=== PATIENT | male | born 1940 | race Caucasian/White ===

== ENCOUNTER 2022-02-08 09:09 | Emergency (ER) | payer OTHER ==
--- OUTSIDE RECORDS SUMMARY | 2022-02-08 09:13 | XMS REPORT | Continuity of Care Document ---
:1940 Author Organization [facility] t Address [address] [place] [address] Care Team Providers Name Role Phone Abhijeet ISABEL, Becky Primary Care Physician David Hilliard Attending Clinician Unavailable Nurse, Adc Pob Immunization Attending Clinician Unavailable Jeferson Bravo DO Attending Clinician JEFERSON BRAVO Attending Clinician Unavailable Ricardo ISABEL, Benito Attending Clinician Lab, Adc Fam Pob I Attending Clinician Unavailable Shanti Chacon Attending Clinician Payers Payer Name Policy Type Policy Number Effective Date Expiration Date S ource Problems Condition Condition Condition Status Onset Resolution Last Treating Co mments Source Name Details Category Date Date Treatment Clinician Date Osteoarthr Osteoarthr Disease Active 2014-06 U nivers itis of itis of 2-18 ity of both knees both knees 00:00: [place] [address] [place] [address] Kidney Kidney Disease Active 2014-06 Univers stones stones 2-18 ity of 00:00: [address] HTN HTN Disease Active 2014-06 Univers (hypertens (hypertens 2-18 it y of ion) ion) 00:00: [address] Neuropathy Neuropathy Disease Active 2014-06 U nivers 2-18 ity of 00:00: [place] 00 Medical Branch Hyperlipid Hyperlipid Disease Active 2014-06 U nivers emia emia 18 ity of 00:00: [place] 00 Medical Branch Allergies, Adverse Reactions, Alerts Allergy Allergy Status Severity Reaction(s) Onset Inactive Treating Comm ents Source Name Type Date Date Clinician Stephanie Propensi Active Itching 2014-06 Univers ty to 218 ity of adverse 00:00: [place] reaction 00 Medical s Branch NIACIN DRUG Active ITCHING 2014-06 Univers INGREDI 18 ity of 00:00: [place] 00 Medical Branch Niaspan Adverse Active itching Common Reaction [facility] Social History Social Habit Start Date Stop Date Quantity Comments Source Alcohol intake 2016-11-07 2016-11-07 0 /d [facility] 00:00:00 00:00:00 Medical Branch Tobacco Comment 2015-07-15 2015-07-15 quit age 37 [facility] 00:00:00 00:00:00 Medical Branch Sex Ass[birth year] [facility] 00:00:00 00:00:00 Medical Branch Smoking Status Start Date Stop Date Source Former smoker 2015-07-15 00:00:00 2015-07-15 00:00:00 [facility] Medical Branch Medications Ordered Filled Start Stop Current Ordering Indication Dosage Frequency Signature Comments Components Source Medication Medication Date Date Medication? Clinician (SIG) Name Name amLODIPine Yes [id number] 5mg Take 1 U nivers 5 mg tablet 2-12 tablet by ity of 00:00: mouth [place] 00 daily. Medical Branch amLODIPine Yes [id number] 5mg Take 1 U nivers 5 mg tablet 2-12 tablet by ity of 00:00: mouth [place] 00 daily. Medical Branch amLODIPine Yes [id number] 5mg Take 1 U nivers 5 mg tablet 2-26 tablet by ity of 00:00: mouth [place] 00 daily. Medical Branch amLODIPine 2020- No [id number] 5mg Take 1 Univers 5 mg tablet 2-26 02-12 tablet by it y of 00:00: 00:00 mouth [place] 00 :00 daily. Medical Branch ProAir HFA ProAir HFA Yes David 2 puffs as Common 1-21 Hilliard needed Spirit 00:00: - [facility] OMEGA-3 2017- Yes 600[iU] Take 600 Uni vers FATTY 6-05 Int'l ity of ACIDS/FISH 14:32: Units by Gerald as OIL (OMEGA 13 mouth 2 Medica l 3 FISH OIL (two) Branch ORAL) times daily. GLUCOSAM Yes 1500mg Take 1,500 U nivers SUL 6-05 mg by ity of NA/CHONDR 14:32: mouth [place] MARROQUIN A NA 13 daily. Medical (GLUCOSAMIN Branch E & CHONDROIT SUL.NA ORAL) MAGNESIUM 2017 Yes 27mg Take 27 mg Un alex AMINO ACID 6-05 by mouth 3 ity of CHELATE 14:32: (three) [place] (MAGNESIUM 13 times Medical GLUCONATE daily. Branch 27 MG [facility] [place] MG) tablet Magnesium Yes 500mg Take 500 Uni vers Oxide 500 6-05 mg by ity of mg Cap 14:32: mouth [place] 13 daily. Medical Branch aspirin 81 2017 Yes 81mg Take 81 mg U nivers mg EC 6-05 by mouth ity of tablet 14:32: daily. [place] [address] Medical Branch loratadine Yes 10mg Take 10 mg U nivers (CLARITIN) 6-05 by mouth ity o f 10 mg 14:32: daily. [address] Branch Silodosin Yes 8mg Take 8 mg Uni vers (RAPAFLO) 8 6-05 by mouth ity of mg capsule 14:32: daily. [place] [address] Medical Branch POTASSIUM 2017 Yes 20mg Take 20 mg Un alex CITRATE 6-05 by mouth 3 ity of ORAL 14:32: (three) [place] 13 times Medical daily. Branch Coenzyme 20170 Yes 400mg Take 400 Univ ers Q10 (CO 6-05 mg by ity of Q-10) 400 14:32: mouth [place] mg Cap 13 daily. Medical Branch OMEGA-3 2017 Yes 600[iU] Take 600 Uni vers FATTY 6-05 Int'l ity of ACIDS/FISH 14:32: Units by Gerald as OIL (OMEGA 13 mouth 2 Medica l 3 FISH OIL (two) Branch ORAL) times daily. GLUCOSAM 2017 Yes 1500mg Take 1,500 U nivers SUL 6-05 mg by ity of NA/CHONDR 14:32: mouth [place] MARROQUIN A NA 13 daily. Medical (GLUCOSAMIN Branch E & CHONDROIT SUL.NA ORAL) MAGNESIUM 2017 Yes 27mg Take 27 mg Un alex AMINO ACID 6-05 by mouth 3 ity of CHELATE 14:32: (three) [place] (MAGNESIUM 13 times Medical GLUCONATE daily. Branch 27 MG [facility] [place] MG) tablet Magnesium 2017 Yes 500mg Take 500 Uni vers Oxide 500 6-05 mg by ity of mg Cap 14:32: mouth [place] 13 daily. Medical Branch aspirin 81 20170 Yes 81mg Take 81 mg U nivers mg EC 6-05 by mouth ity of tablet 14:32: daily. [place] [address] Medical Branch loratadine Yes 10mg Take 10 mg U nivers (CLARITIN) 6-05 by mouth ity o f 10 mg 14:32: daily. [place] [address] Medical Branch Silodosin Yes 8mg Take 8 mg Uni vers (RAPAFLO) 8 6-05 by mouth ity of mg capsule 14:32: daily. [place] [address] Medical Branch POTASSIUM Yes 20mg Take 20 mg Un alex CITRATE 6-05 by mouth 3 ity of ORAL 14:32: (three) [place] 13 times Medical daily. Branch Coenzyme 2017 Yes 400mg Take 400 Univ ers Q10 (CO 6-05 mg by ity of Q-10) 400 14:32: mouth [place] mg Cap 13 daily. Medical Branch aspirin 81 0 Yes 81mg Take 81 mg U nivers mg EC 6-05 by mouth ity of tablet 09:32: daily. [address] Branch loratadine 2017 Yes 10mg Take 10 mg U nivers (CLARITIN) 6-05 by mouth ity o f 10 mg 09:32: daily. [place] tablet Medical Branch Silodosin 2017 Yes 8mg Take 8 mg Uni vers (RAPAFLO) 8 6-05 by mouth ity of mg capsule 09:32: daily. [place] [address] Medical Branch POTASSIUM 2017- Yes 20mg Take 20 mg Un alex CITRATE 6-05 by mouth 3 ity of ORAL 09:32: (three) [place] 13 times Medical daily. Branch Coenzyme 20170 Yes 400mg Take 400 Univ ers Q10 (CO 6-05 mg by ity of Q-10) 400 09:32: mouth [place] mg Cap 13 daily. Medical Branch OMEGA-3 2017 Yes 600[iU] Take 600 Uni vers FATTY 6-05 Int'l ity of ACIDS/FISH 09:32: Units by Gerald as OIL (OMEGA 13 mouth 2 Medica l 3 FISH OIL (two) Branch ORAL) times daily. GLUCOSAM Yes 1500mg Take 1,500 U nivers SUL 6-05 mg by ity of NA/CHONDR 09:32: mouth [place] MARROQUIN A NA 13 daily. Medical (GLUCOSAMIN Branch E & CHONDROIT SUL.NA ORAL) MAGNESIUM Yes 27mg Take 27 mg Un alex AMINO ACID 6-05 by mouth 3 ity of CHELATE 09:32: (three) [place] (MAGNESIUM 13 times Medical GLUCONATE daily. Branch 27 MG [facility] [place] MG) tablet Magnesium Yes 500mg Take 500 Uni vers Oxide 500 6-05 mg by ity of mg Cap 09:32: mouth [place] 13 daily. Medical Branch ramipril Yes 10mg Take 1 Univers (ALTACE) 10 8-05 capsule by it y of mg capsule 00:00: mouth [place] 00 daily. Medical Branch ramipril Yes 10mg Take 1 Univers (ALTACE) 10 8-05 capsule by it y of mg capsule 00:00: mouth [place] 00 daily. Medical Branch ramipril Yes 10mg Take 1 Univers (ALTACE) 10 8-05 capsule by it y of mg capsule 00:00: mouth [place] 00 daily. Medical Branch fenofibrate Yes 145mg Take 1 Tab Univers (TRICOR) 2-05 by mouth ity of 145 mg 00:00: daily. [place] tablet 00 Medical Branch FLUoxetine Yes 20mg Take 1 Cap U nivers (PROZAC) 20 2-05 by mouth ity of mg capsule 00:00: daily. [place] 00 Medical Branch gabapentin Yes 600mg Take 1 Tab Univers (NEURONTIN) 2-05 by mouth 2 it y of 600 mg 00:00: (two) [place] tablet 00 times Medical daily. Branch fenofibrate Yes 145mg Take 1 Tab Univers (TRICOR) 2-05 by mouth ity of 145 mg 00:00: daily. [place] tablet 00 Medical Branch FLUoxetine Yes 20mg Take 1 Cap U nivers (PROZAC) 20 2-05 by mouth ity of mg capsule 00:00: daily. [place] 00 Medical Branch gabapentin Yes 600mg Take 1 Tab Univers (NEURONTIN) 2-05 by mouth 2 it y of 600 mg 00:00: (two) [place] tablet 00 times Medical daily. Branch fenofibrate Yes 145mg Take 1 Tab Univers (TRICOR) 2-05 by mouth ity of 145 mg 00:00: daily. [place] tablet 00 Medical Branch FLUoxetine Yes 20mg Take 1 Cap U nivers (PROZAC) 20 2-05 by mouth ity of mg capsule 00:00: daily. [place] 00 Medical Branch gabapentin Yes 600mg Take 1 Tab Univers (NEURONTIN) 2-05 by mouth 2 it y of 600 mg 00:00: (two) [place] tablet 00 times Medical daily. Branch Prozac Prozac Yes David 1 capsule Comm on Hilliard in the [facility] morning [facility] Celebrex Celebrex Yes David TAKE ONE C ommon Hilliard CAPSULE BY [facility] MOUTH - [facility] EVERY DAY St WITH FOOD [facility] FOR [facility] PAIN CoQ-10 CoQ-10 Yes David 1 capsule Comm on Hilliard with a [facility] meal [facility] Sumas 3 Sumas 3 Yes David not Common Hilliard defined [facility] Tamsulosin Tamsulosin Yes David 1 capsule Common HCl HCl Hilliard [facility] Norvasc Norvasc Yes David 1 tablet Com mon Hilliard [facility] Aspirin Aspirin Yes David 1 tablet Com mon Adult Low Adult Low Hilliard Spir it Dose Dose - [facility] Ramipril Ramipril Yes David 1 capsule Common Hilliard [facility] Potassium Potassium Yes David 6tablet Common Citrate ER Citrate ER Hilliard with meals [facility] Tricor Tricor Yes David 1 tablet Commo n Hilliard with food [facility] Ramipril Ramipril Yes David 1 capsule Common Hilliard [facility] Magnesium Magnesium Yes David 1 tablet Common Hilliard with a Spirit meal [facility] Neurontin Neurontin Yes David 1 tablet Common Hilliard [facility] Xalatan Xalatan Yes David 1 drop Commo n Hilliard into [facility] affected - [facility] eye in the [facility] Silodosin Silodosin Yes Daivd 1 capsule Common Hilliard with a Spirit meal [facility] Brimonidine Brimonidine Yes David 1 drop to Common Tartrate Tartrate Hilliard both eyes S pirit [facility] Neurontin Neurontin Yes David 1 tablet Common [facility]ard Spirit [facility] Albuterol Albuterol Yes David 2 PUFFS Common Sulfate HFA Sulfate HFA [facility] NEEDED Spirit EVERY 6 - CHI HRS PRN COUGH, [facility] WHEEZING Medical OR [place] SHORTNESS OF BREATH INHALATION 30 DAYS Fenofibrate Fenofibrate Yes David TAKE 1 Common Hilliard TABLET BY Spirit MOUTH - [facility]I EVERY DAY St WITH FOOD [facility] Immunizations Ordered Filled Immunization Date Status Comments Sourc e Immunization Name Name SARS-COV-2 COVID-19 2021-07-16 Completed Unive rsity of LACHELLE/J&J VACCINE 00:00:00 [facility] [place] [facility] Branch Procedures Procedure Date / Time Performed Performing Clinician Keely marsh SARS-COV-2 COVID-19 2021-07-16 20:36:36 Doctor Unassigned, No Un iversity of [place] VACCINE,0.5ML,IM Name Medical Branch (LACHELLE/J&J) Encounters Start End Encounter Admission Attending Care Care Encounter Source Date/Time Date/Time Type Type Clinicians Facility Department ID 2021-06-30 Outpatient Hilliard, [facility] Common 13:05:20 David [id number] [facility] 2021-06-30 Outpatient [facility], [facility] Common 13:00:18 David [id number] [facility] 2021-06-30 Outpatient Hilliard, [facility] Common 11:20:34 David [id number] [facility] 2021-06-30 Outpatient Hilliard, [facility] Common 11:20:15 David [id number] [facility] 2021-06-30 Outpatient Hilliard, [facility] Common 11:16:53 David [id number] [facility] 2021-06-30 Outpatient Hilliard, [facility] [id number] Common 11:02:16 [facility] [id number] [facility] 2021-11-12 2021-11-12 ambulatory STLMLC ST[facility]C [id number] Common 00:00:00 00:00:00 [facility] 2021-11-02 2021-11-02 ambulatory STLMLC STLMLC [id number] Common 00:00:00 00:00:00 [facility] 2021-08-16 2021-08-16 ambulatory STLMLC STLMLC [id number] Common 00:00:00 00:00:00 [facility] 2021-07-16 2021-07-16 Imm/Inj Nurse, Adc Pob Immunization [facility] [id number] Univers 14:30:00 14:30:00 Visit Jeferson Bravo [id number] alex [facility] [id number] Jamaal MAI [id number] [address] 2021-07-16 2021-07-16 Outpatient R [facility] [id number] Univers 14:30:00 14:24:[address] [facility] 2021-07-13 2021-07-13 ambulatory STLMLC STLMLC [id number] Common 00:00:00 00:00:00 [facility] 2021-07-09 2021-07-09 ambulatory STLMLC STLMLC [id number] Common 00:00:00 00:00:00 [facility] 2021-04-22 2021-04-22 ambulatory STLMLC STLMLC [id number] Common 00:00:00 00:00:00 [facility] 2021-01-22 2021-01-22 Outpatient STLMLC STLMLC [id number] Common 00:00:00 00:00:00 [facility] 2021-01-22 2021-01-22 Outpatient STLMLC STLMLC [id number] Common 00:00:00 00:00:00 [facility] 2020-11-12 2020-11-12 Outpatient STLMLC STLMLC [id number] Common 00:00:00 00:00:00 [facility] 2020-10-28 2020-10-28 Outpatient STLMLC STLMLC [id number] Common 00:00:00 00:00:00 [facility] 2020-10-22 2020-10-22 Outpatient STLMLC STLMLC [id number] Common 00:00:00 00:00:00 [facility] 2020-09-18 2020-09-18 Outpatient STLMLC STLMLC [id number] Common 00:00:00 00:00:00 [facility] 2020-09-16 2020-09-16 Outpatient STLMLC STLMLC [id number] Common 00:00:00 00:00:00 [facility] 2020-09-14 2020-09-14 Outpatient STLMLC STLMLC [id number] Common 00:00:00 00:00:00 [facility] 2020-09-10 2020-09-10 Outpatient STLMLC STLMLC [id number] Common 00:00:00 00:00:00 [facility] 2020-09-10 2020-09-10 Outpatient STLMLC STLMLC [id number] Common 00:00:00 00:00:00 [facility] 2020-07-17 2020-07-17 [facility] [id number] Univers 00:00:00 00:00:00 [facility] [id number] [facility] [id number] Jamaal Mai [id number] Ak dical [address] 2020-01-14 2020-01-14 Outpatient R [facility] [id number] Univers 16:00:00 16:00:[id number] [facility] 2020-01-14 2020-01-14 Outpatient R [facility] [id number] Univers 16:00:00 16:00:00 [facility] 2020-01-14 2020-01-14 Laboratory Lab, Adc Fam Pob I [facility] [id number] [facility] [place] 15:04:26 15:24:26 Only Shanti Lund [id number] ity junaid Lucia [id number] Gerald as Aj [id number] Ak dical nal [address] 2019-10-08 2019-10-08 [facility] [id number] Common 11:30:00 11:30:[address] [facility] 2019-08-20 2019-08-20 Outpatient [facility] [id number] Common 12:51:00 12:51:[address] [facility] 2019-06-26 2019-06-26 Outpatient [facility] [id number] Common 08:38:00 08:38:[address] [facility] 2019-06-25 2019-06-25 Outpatient [facility] [id number] Common 16:45:00 16:45:[address] [facility] 2019-05-22 2019-05-22 Outpatient [facility] [id number] Common 10:30:00 10:30:[address] [facility] 2019-05-10 2019-05-10 Outpatient [facility] [id number] Common 15:35:00 15:35:[address] [facility] 2019-03-04 2019-03-04 Outpatient [facility] [id number] Common 15:15:00 15:15:[address] Family [facility] 2018-12-15 2018-12-15 Outpatient [facility] [id number] Common 10:10:00 10:10:[address] [facility] 2018-11-21 2018-11-21 Outpatient [facility] [id number] Common 11:45:00 11:45:[address] [facility] 2018-07-09 2018-07-09 Outpatient [facility] [id number] Common 13:30:00 13:30:[address] [facility] 2018-06-08 2018-06-08 Outpatient [facility] [id number] Common 15:54:00 15:54:[address] [facility] 2018-01-03 2018-01-03 Outpatient [facility] [id number] Common 13:30:00 13:30:[address] [facility] Results This patient has no known results.
--- NOTE | 2022-02-08 10:37 | ER ---
Nurse's Notes [facility] Name: Abraham Yadav Age: 81 yrs Sex: Male : 1940 Arrival Date: 02/08/2022 Time: 09:11 Bed Waiting Private MD: David Hilliard Diagnosis: Low back pain Presentation: 02/08 09:53 Chief complaint: Patient states: L flank pain with N/V since 6 PM last night. Believes ll1 its another kidney stone. Coronavirus screen: Vaccine status: Patient reports receiving the 2nd dose of the covid vaccine. Client denies travel out of the [place] in the last 14 days. At this time, the client does not indicate any symptoms associated with coronavirus-19. Ebola Screen: Patient denies travel to an Ebola-affected area in the 21 days before illness onset. Initial Sepsis Screen: Does the patient meet any 2 criteria? No. Patient's initial sepsis screen is negative. Does the patient have a suspected source of infection? Yes: Dysuria/Frequency/Urgency/UTI. Risk Assessment: Do you want to hurt yourself or someone else? Patient reports no desire to harm self or others. Onset of symptoms was February 07, 2022. 09:53 Method Of Arrival: Ambulatory ll1 09:53 Acuity: EVELIN 3 ll1 Triage Assessment: 09:55 General: Appears uncomfortable, Behavior is cooperative, appropriate for age. Pain: ll1 Complains of pain in left mid back. GI: Reports nausea, vomiting. : Reports L flank pain. Historical: - Allergies: 09:54 Niaspan; ll1 - PMHx: 09:54 Kidney stone; neuropathy; ll1 - PSHx: 09:54 knee replacement; ll1 - Immunization history:: Client reports receiving the 2nd dose of the Covid vaccine. - Social history:: Smoking status: Patient denies any tobacco usage or history of. - Family history:: not pertinent. - Hospitalizations: : No recent hospitalization is reported. Vital Signs: 09:53 BP 172 / 79; Pulse 69; Resp 17; Temp 97.7; Pulse Ox 98% ; Weight 104.33 kg; Height 5 ll1 ft. 9 in. (175.26 cm); Pain 10/10; 09:53 Body Mass Index 33.96 (104.33 kg, 175.26 cm) ll1 ED Course: 09:11 Patient arrived in ED. rg4 09:12 David Hilliard DO is Private Physician. rg4 09:16 Bam Navarro MD is Attending Physician. rn 09:54 Triage completed. ll1 09:55 Arm band placed on. ll1 10:36 Patient not in lobby when called to room. ll1 Administered Medications: No medications were administered Outcome: 10:36 Patient left the ED. ll1 12:06 Discharged to home without discharge instructions per Dr. Navarro ll1 12:06 Condition: stable 12:06 Patient left the ED. ll1 17:08 Discharge ordered by . rn 17:10 Patient left the ED. rn Signatures: Bam Navarro MD MD rn Garcia, Rubi 4 Pam Radford RN RN 1 Corrections: (The following items were deleted from the chart) 09:55 09:54 Allergies: No Known Allergies; 1 ll1
--- NOTE | 2022-02-08 10:37 | EDPHYS ---
Physician Documentation [facility] Name: Abraham Yadav Age: 81 yrs Sex: Male : 1940 Arrival Date: 02/08/2022 Time: 09:11 Bed Waiting Private MD: David Hilliard ED Physician Bam Navarro HPI: 02/08 10:34 This 81 yrs old Male presents to ER via Ambulatory with complaints of Possible Kidney rn Stone. 10:34 The patient complains of pain in the left mid back. The pain does not radiate. Onset: rn The symptoms/episode began/occurred yesterday. Modifying factors: The symptoms are alleviated by nothing. the symptoms are aggravated by nothing. Associated signs and symptoms: Pertinent positives: nausea, vomiting, Pertinent negatives: fever. Severity of pain: At its worst the pain was moderate in the emergency department the pain is unchanged. The patient has experienced similar episodes in the past. The patient has not recently seen a physician. Pt states pain began yesterday, pain identical to previous kidney stones, has had numerous times. No atypical symptoms. No fever. NO trauma. . Historical: - Allergies: 09:54 Niaspan; ll1 - PMHx: 09:54 Kidney stone; neuropathy; ll1 - PSHx: 09:54 knee replacement; ll1 - Immunization history:: Client reports receiving the 2nd dose of the Covid vaccine. - Social history:: Smoking status: Patient denies any tobacco usage or history of. - Family history:: not pertinent. - Hospitalizations: : No recent hospitalization is reported. ROS: 10:34 Constitutional: Negative for fever, chills, and weight loss, Eyes: Negative for injury, rn pain, redness, and discharge, Neck: Negative for injury, pain, and swelling, Cardiovascular: Negative for chest pain, palpitations, and edema, Respiratory: Negative for shortness of breath, cough, wheezing, and pleuritic chest pain, Abdomen/GI: + left flank pain with nausea/vomiting Back: Negative for injury : Negative for injury, bleeding, discharge, and swelling, MS/Extremity: Negative for injury and deformity, Skin: Negative for injury, rash, and discoloration, Neuro: Negative for headache, weakness, numbness, tingling, and seizure. Exam: 10:34 Constitutional: This is a well developed, well nourished patient who is awake, alert, rn appears uncomfortable, seen in central hospital Head/Face: Normocephalic, atraumatic. Cardiovascular: Regular rate and rhythm. No pulse deficits. Respiratory: No increased work of breathing, no retractions or nasal flaring. Abdomen/GI: soft, non-tender Skin: Warm, dry MS/ Extremity: Pulses equal, no cyanosis. Neuro: Awake and alert, GCS 15 Vital Signs: 09:53 BP 172 / 79; Pulse 69; Resp 17; Temp 97.7; Pulse Ox 98% ; Weight 104.33 kg; Height 5 ll1 ft. 9 in. (175.26 cm); Pain 1010; 09:53 Body Mass Index 33.96 (104.33 kg, 175.26 cm) ll1 MDM: 09:16 Patient medically screened. rn 11:46 Differential diagnosis: nephrolithiasis, pyelonephritis, UTI. ED course: NOtified by rn nursing that patient became inpatient and left just prior to being roomed, had room assigned and chose to leave. I had offered them medication in central hospital while waiting for room and they had agreed, then left. Family member implied that they were going to [place] across the street because of wait time.. 02/08 09:34 Order name: Urine Dipstick-Ancillary (obtain specimen) rn 02/08 10:10 Order name: IV Start rn Administered Medications: No medications were administered Disposition Summary: 02/08/22 17:08 Discharge Ordered Location: Home rn Problem: new(02/08/22 17:08) rn Symptoms: are unchanged(02/08/22 17:08) rn Condition: Stable(02/08/22 17:08) rn Diagnosis - Low back pain(02/08/22 17:08) rn Followup: rn - With: Emergency Department - When: Upon discharge from the Emergency Department - Reason: Recheck today's complaints, Re-evaluation by your physician Forms: - Medication Reconciliation Form rn - Thank You Letter rn - Antibiotic furnace operator and tender - Prescription Opioid Use rn Signatures: Dispatcher [employer] EDMS Bam Navarro MD MD rn Lewis, Lynsay, RN RN ll1 Corrections: (The following items were deleted from the chart) 09:55 09:54 Allergies: No Known Allergies; ll1 ll1 12:05 10:36 unknown ll1 rn : 11:46 ED course: NOtified by nursing that patient became inpatient and left just prior rn to being roomed, had room assigned and chose to leave. I had offered them medication in lobby while waiting for room and they had agreed, then left. . rn : 10:36 after being seen by provider dariel rn : 12:05 new rn rn : 12:05 are unchanged rn rn : 12:05 wait time rn rn : 12:05 Stable rn rn 17: 12:05 Low back pain rn rn
[2022-02-08 12:04] VITALS: BP 172/79; TEMP 97.7; O2SAT 98
== END 2022-02-08 17:10 | disposition home or self-care (01) ==
LOC: ER 09:09
DX: M54.50 Low back pain, unspecified (principal); Z87.442 Personal history of urinary calculi; Z88.8 Allergy status to other drugs, medicaments and biological substances
CPT/HCPCS: 99281

== ENCOUNTER 2025-01-18 08:57 | Observation (INO) | payer OTHER ==
[2025-01-18] MEDS ORDERED: NITROGLYCERIN 0.4 MG/TAB SL ONE (09:05)
[2025-01-18 09:19] LABS: Absolute Lymphocytes (CBC) 2.0 K/uL (0.7-4.9); Hematocrit 47.2 % (39.6-49.0); Hemoglobin 16.0 g/dL (13.6-17.9); MCH 31.4 pg (27.0-35.0); MCHC 33.9 g/dL (32.0-36.0); MCV 92.6 fL (80-100); MPV 7.6 fL (7.6-11.3); Nucleated RBC Absolute Count 0.0 (0-0); Nucleated Red Blood Cells % 0.1 % (0-0); RBC Red Blood Cell Count 5.09 M/uL (4.33-5.43); White Blood Count 7.90 thou/uL (4.3-10.9)
[2025-01-18 09:28] LABS: PT Prothrombin Time 12.9 SECONDS (10-13.0); Protime INR 1.15
[2025-01-18 09:44] LABS: ALT/SGPT 42.0 U/L (16-61); AST/SGOT 27.0 U/L (15-37); Albumin 3.5 g/dL (3.4-5.0); Albumin/Globulin Ratio 0.9 (1.1-1.8); Alkaline Phosphatase 44.0 U/L (45-117); Anion Gap 7.7 mEq/L (5.0-15.0); BUN Blood Urea Nitrogen 12.0 mg/dL (7-18); Bilirubin Indirect, Calculated 0.8 mg/dL (0.2-0.8); Globulin 4.0 g/dL (2.3-3.5); Glucose Level 139.0 mg/dL (74-106); Magnesium 2.3 mg/dL (1.6-2.4); NT PRO-BNP 35.0 pg/mL (<450); Potassium 3.7 mEq/L (3.5-5.1); Troponin High Sensitivity 5.2 pg/mL (<58.9)
[2025-01-18] MEDS ORDERED: MORPHINE 4 MG/ML SYR ONE (10:51)
[2025-01-18] MEDS ORDERED: ONDANSETRON 4 MG/2 ML VIAL ONE (10:51)
--- NOTE | 2025-01-18 11:03 | RAD REPORT ---
EXAMINATION: CTA CHEST PE CLINICAL INDICATION: Chest pain TECHNIQUE: 100 cc 370 Isovue administered intravenously. This examination was performed according to an angiographic protocol with 3D post-processing. This involves 3D reconstructions, MIPs, volume rendered images and/or shaded surface rendering. One or more of the following dose reduction techniqu es were used: Automated exposure control, adjustment of the mA and/or kV according to patient size, and/or iterative reconstruction. Unless otherwise specified, incidental findings do not require dedic ated imaging follow-up. [id number]. COMPARISON: 2012. FINDINGS: A pulmonary embolus is not seen. An aortic aneurysm not noted. No pleural effusion. No pericardial effusion. Mild left lower lobe opacities probably mild areas of atelectasis. Mild gastric distention IMPRESSION: No evidence of a pulmonary embolism Mild gastric distention
--- NOTE | 2025-01-18 11:05 | RAD REPORT ---
Procedure: Chest Single View HISTORY: Chest pain COMPARISON: 2019 FINDINGS: Mild left basilar lung opacities. No significant pleural effusion noted. The heart is probably upper limits normal size IMPRESSION: Mild left basilar lung opacities probably mild atelectasis.
--- NOTE | 2025-01-18 11:14 | ER ---
Nurse's Notes [facility] Name: Abraham Yadav Age: 84 yrs Sex: Male : 1940 Arrival Date: 01/18/2025 Time: 08:57 Bed 4 Private MD: Diagnosis: Chest pain Presentation: 01/18 09:05 Chief complaint: Patient states: Chest pain that woke him up out of sleep approximately ss 1 hour ago. Reports pain radiates up R side of neck and towards back. Daughter reports he has been out of medication for unknown time. Coronavirus screen: Client denies travel out of the [place] in the last 14 days. Ebola Screen: Patient denies exposure to infectious person. Patient denies travel to an Ebola-affected area in the 21 days before illness onset. Initial Sepsis Screen: Does the patient meet any 2 criteria? No. Patient's initial sepsis screen is negative. Does the patient have a suspected source of infection? No. Patient's initial sepsis screen is negative. Risk Assessment: Do you want to hurt yourself or someone else? Patient reports no desire to harm self or others. Onset of symptoms was January 18, 2025. 09:05 Acuity: EVELIN 2 ss 09:05 Method Of Arrival: Ambulatory ss Historical: - Allergies: 09:07 Niaspan; ss - PMHx: 09:07 Kidney stone; neuropathy; Hypertensive disorder; ss - PSHx: 09:07 knee replacement; ss - Immunization history:: Adult Immunizations unknown. - Infectious Disease History:: Denies. - Social history:: Smoking status: Patient/guardian denies using tobacco, but has a distant history of tobacco abuse. Screenin:13 Abuse screen: Denies threats or abuse. Nutritional screening: No deficits noted. ap3 Tuberculosis screening: No symptoms or risk factors identified. 09:29 [facility] ED Fall Risk Assessment (Adult) History of falling in the last 3 months, ar8 including since admission No falls in past 3 months (0 pts) Confusion or Disorientation No (0 pts) Intoxicated or Sedated No (0 pts) Impaired Gait No (0 pts) Mobility Assist Device Used No (0 pt) Altered Elimination No (0 pt) Score/Fall Risk Level 0 - 2 = Low Risk Oriented to surroundings, Maintained a safe environment. Assessment: 09:29 General: Appears in no apparent distress. Behavior is calm, cooperative. Pain: ar8 Complains of pain in chest Pain radiates to posterior cervical area and right trapezius Pain began 2 hours ago. Neuro: No deficits noted. Level of Consciousness is awake, alert, obeys commands, Oriented to person, place, time, situation. Cardiovascular: Reports chest pain, Patient's skin is warm and dry. Rhythm is sinus rhythm Chest pain. Respiratory: No deficits noted. Airway is patent Respiratory effort is even, Respiratory pattern is tachypnea SOB noted with exertion. GI: No deficits noted. 10:57 Reassessment: Pt c/o right sided neck pain, Dr. Hilliard notified, medicated as ordered. hb Daughter at bedside. Vital Signs: 09:05 BP 194 / 101; Pulse 91; Resp 22; Temp 97.7(O); Weight 100.7 kg; Height 5 ft. 9 in. ; ss Pain 5/10; 09:28 BP 126 / 70; Pulse 90; Resp 24; Pulse Ox 92% on R/A; ar8 10:43 BP 178 / 80; Pulse 73; Resp 17; Pulse Ox 100% on R/A; af3 09:05 Body Mass Index 32.78 (100.70 kg, 175.26 cm) ss 09:05 Pain Scale: Adult ss ED Course: 08:58 Patient arrived in ED. ts1 08:58 Héctor Hilliard MD is Attending Physician. sp3 09:07 Triage completed. ss 09:07 Arm band placed on left wrist. ss 09:08 Client placed on continuous cardiac and pulse oximetry monitoring. NIBP monitoring ap3 applied. teletypesetter monitor on. Pulse ox on. NIBP on. Warm blanket given. Pillow given. 09:08 Inserted saline lock: 20 gauge in right antecubital area, using aseptic technique. ap3 Blood collected. Flushed with 10 mL NS. 09:12 EKG done, by ED staff, reviewed by Héctor Hilliard MD. ap3 09:12 Patient maintains SpO2 saturation greater than 95% on room air. ap3 09:27 Shaquille Barros, RN is Primary Nurse. ar8 09:29 Bed in low position. Call light in reach. Side rails up X2. Provided Education on: plan ar8 of care. 09:29 No provider procedures requiring assistance completed. ar8 09:36 XRAY Chest (1 view) In Process Unspecified. EDMS 10:37 CT Chest For PE Angio In Process Unspecified. EDMS 11:13 Prince Aviles MD is Hospitalizing Provider. sp3 13:08 Patient admitted, IV remains in place. ss Administered Medications: 09:12 Drug: Nitroglycerin Sublingual 0.4 mg Sublingual once Route: Sublingual; ap3 10:56 Drug: morphine IVP or IV 4 mg IVP once over 4 mins Route: IVP; Infused Over: 4 mins; hb Site: right antecubital; 10:56 Drug: Ondansetron IVP 4 mg IVP once; over 2 minutes Route: IVP; Site: right antecubital;hb Medication: 09:29 VIS not applicable for this client. ar8 Outcome: 11:14 Decision to Hospitalize by Provider. sp3 13:08 Admitted to Tele accompanied by tech, family with patient, via wheelchair, room 214, ss with chart, 13:08 Condition: good 13:08 Instructed on the need for admit, 13:08 Patient left the ED. ss Signatures: Dispatcher [employer] EDMS Debbie Whitley, RN RN ss Ting Parmar RN RN Radha Kim RN RN ap3 Héctor Hilliard MD MD sp3 Jaclyn Logan PAS PAS ts1 Magali Oshea RN RN af3 Shaquille Barros RN RN ar8
--- NOTE | 2025-01-18 11:14 | EDPHYS ---
Physician Documentation [facility] Name: Abraham Yadav Age: 84 yrs Sex: Male : 1940 Arrival Date: 01/18/2025 Time: 08:57 Bed 4 Private MD: ED Physician Héctor Hilliard HPI: 01/18 09:32 This 84 yrs old Male presents to ER via Ambulatory with complaints of Chest Pain, Neck sp3 Problem. 09:32 84-year-old male with history of kidney stone, hypertension sees Dr. David Hilliard as sp3 PCP now presents to the for chief complaint chest pain via POV. Pain started approximately 1 AM. Patient is brought by his daughter. He has not been taking his medications due to logistical issues. He denies any other signs or symptoms except dyspnea on exertion. Pain does extend to his mid back. Review of systems negative for headache, neck pain, abdominal pain, nausea, vomiting, diarrhea, syncope, near syncope, fever, known sick contacts, travel history, prolonged immobilization, or any other signs or symptoms on ROS at this time.. Historical: - Allergies: 09:07 Niaspan; ss - PMHx: 09:07 Kidney stone; neuropathy; Hypertensive disorder; ss - PSHx: 09:07 knee replacement; ss - Immunization history:: Adult Immunizations unknown. - Infectious Disease History:: Denies. - Social history:: Smoking status: Patient/guardian denies using tobacco, but has a distant history of tobacco abuse. ROS: 09:33 Constitutional: Negative for fever, chills, and weight loss, Eyes: Negative for injury, sp3 pain, redness, and discharge, ENT: Negative for injury, pain, and discharge, Neck: Negative for injury, pain, and swelling, Respiratory: Negative for shortness of breath, cough, wheezing, and pleuritic chest pain, Abdomen/GI: Negative for abdominal pain, nausea, vomiting, diarrhea, and constipation, Back: Negative for injury and pain, MS/Extremity: Negative for injury and deformity, Skin: Negative for injury, rash, and discoloration, Neuro: Negative for headache, weakness, numbness, tingling, and seizure, Psych: Negative for depression, anxiety, suicide ideation, homicidal ideation, and hallucinations, Allergy/Immunology: Negative for hives, rash, and allergies, Endocrine: Negative for neck swelling, polydipsia, polyuria, polyphagia, and marked weight changes, 09:33 All other systems are negative, Exam: 09:34 Constitutional: This is a well developed, well nourished patient who is awake, alert, sp3 and in no acute distress. Head/Face: Normocephalic, atraumatic. Eyes: Pupils equal round and reactive to light, extra-ocular motions intact. Lids and lashes normal. Conjunctiva and sclera are non-icteric and not injected. Cornea within normal limits. Periorbital areas with no swelling, redness, or edema. Neck: Trachea midline, no thyromegaly or masses palpated, and no cervical lymphadenopathy. Supple, full range of motion without nuchal rigidity, or vertebral point tenderness. No Meningismus. Chest/axilla: Normal chest wall appearance and motion. Nontender with no deformity. No lesions are appreciated. Cardiovascular: Regular rate and rhythm with a normal S1 and S2. No gallops, murmurs, or rubs. Normal PMI, no JVD. No pulse deficits. Respiratory: Lungs have equal breath sounds bilaterally, clear to auscultation and percussion. No rales, rhonchi or wheezes noted. No increased work of breathing, no retractions or nasal flaring. Abdomen/GI: Soft, non-tender, with normal bowel sounds. No distension or tympany. No guarding or rebound. No evidence of tenderness throughout. Back: No spinal tenderness. No costovertebral tenderness. Full range of motion. Skin: Warm, dry with normal turgor. Normal color with no rashes, no lesions, and no evidence of cellulitis. MS/ Extremity: Pulses equal, no cyanosis. Neurovascular intact. Full, normal range of motion. Neuro: Awake and alert, GCS 15, oriented to person, place, time, and situation. Cranial nerves II-XII grossly intact. Motor strength 5/5 in all extremities. Sensory grossly intact. Cerebellar exam normal. Normal gait. Psych: Awake, alert, with orientation to person, place and time. Behavior, mood, and affect are within normal limits. 09:34 ECG was reviewed by the Attending Physician. EKG demonstrates normal sinus rhythm at 86 bpm with normal intervals, slightly rightward axis, nonspecific diffuse ST/T changes without evidence of acute ischemia. Vital Signs: 09:05 BP 194 / 101; Pulse 91; Resp 22; Temp 97.7(O); Weight 100.7 kg; Height 5 ft. 9 in. ; ss Pain 5/10; 09:28 BP 126 / 70; Pulse 90; Resp 24; Pulse Ox 92% on R/A; ar8 10:43 BP 178 / 80; Pulse 73; Resp 17; Pulse Ox 100% on R/A; af3 09:05 Body Mass Index 32.78 (100.70 kg, 175.26 cm) ss 09:05 Pain Scale: Adult ss MDM: 08:59 Medical Screening Exam initiated sp3 09:35 Data reviewed: vital signs, nurses notes, lab test result(s), EKG, radiologic studies. sp3 ED course: 84-year-old male with PMH above now with chest pain. Differential diagnosis includes acute coronary syndrome, PE, pleurisy, musculoskeletal pain, other pulmonary pathology, other intrathoracic pathology, vascular pathology, among others. Workup is broad and will include EKG, chest x-ray, CT scan of the chest PE protocol, general labs including troponin with disposition pending workup and patient course with possible admission.. 11:13 ED course: Full workup negative and patient is feeling better. Will put in 23-hour sp3 observation for serial cardiac markers and cardiology consultation as deemed necessary by inpatient team.. 01/18 08:59 Order name: Basic Metabolic Panel; Complete Time: 10:14 sp3 01/18 08:59 Order name: CBC with Diff; Complete Time: 10:14 sp3 01/18 08:59 Order name: LFT's; Complete Time: 10:14 sp3 01/18 08:59 Order name: Magnesium; Complete Time: 10:14 sp3 01/18 08:59 Order name: NT PRO-BNP; Complete Time: 10:14 sp3 01/18 08:59 Order name: PT-INR; Complete Time: 10:14 sp3 01/18 08:59 Order name: Troponin HS; Complete Time: 10:14 sp3 01/18 11:29 Order name: Basic Metabolic Panel EDMS 01/18 11:29 Order name: Basic Metabolic Panel EDMS 01/18 11:29 Order name: CBC with Automated Diff EDMS 01/18 11:29 Order name: CBC with Automated Diff EDMS 08/16 11:29 Order name: Lipid Profile EDMS 01/18 11:29 Order name: Lipid Profile EDMS 01/18 11:29 Order name: Troponin High Sensitivity EDMS 01/18 11:29 Order name: Troponin High Sensitivity EDMS 01/18 11:29 Order name: Troponin High Sensitivity EDMS 01/18 11:29 Order name: Troponin High Sensitivity EDMS 01/18 11:29 Order name: Troponin High Sensitivity EDMS 01/18 08:59 Order name: XRAY Chest (1 view); Complete Time: 11:06 sp3 01/18 09:07 Order name: CT Chest For PE Angio; Complete Time: 11:06 sp3 01/18 11:29 Order name: Echo with Doppler EDMS 01/18 08:59 Order name: Cardiac monitoring; Complete Time: 09:09 sp3 01/18 08:59 Order name: EKG - Nurse/Tech; Complete Time: 09:09 sp3 01/18 08:59 Order name: IV Saline Lock; Complete Time: 09:09 sp3 01/18 08:59 Order name: Labs collected and sent; Complete Time: 09:09 sp3 01/18 08:59 Order name: O2 Per Protocol; Complete Time: 09:09 sp3 01/18 08:59 Order name: O2 Sat Monitoring; Complete Time: 09:09 sp3 Administered Medications: 09:12 Drug: Nitroglycerin Sublingual 0.4 mg Sublingual once Route: Sublingual; ap3 10:56 Drug: morphine IVP or IV 4 mg IVP once over 4 mins Route: IVP; Infused Over: 4 mins; hb Site: right antecubital; 10:56 Drug: Ondansetron IVP 4 mg IVP once; over 2 minutes Route: IVP; Site: right antecubital;hb Disposition Summary: 01/18/25 11:14 Hospitalization Ordered Notes: Hospitalization Status: Observation sp3 Provider: Prince Stefan spLance Location: Telemetry/MedSurg (observation) sp3 Condition: Stable sp3 Problem: new sp3 Symptoms: have worsened sp3 Bed/Room Type: Standard sp3 Room Assignment: 214(01/18/25 12:07) ss Diagnosis - Chest pain sp3 Forms: - Medication Reconciliation Form sp3 - SBAR form sp3 - Leadership Thank You Letter sp3 Signatures: Dispatcher [employer] EDMS Debbie Whitley, RN RN ss Ting Parmar, RN RN Radha Kim RN RN ap3 Héctor Hilliard MD MD sp3 Shaquille Barros RN RN ar8 Corrections: (The following items were deleted from the chart) 09:00 09:00 BASIC METABOLIC PANEL+C.LAB.BRZ ordered. EDMS EDMS 09:00 09:00 CBC+H.LAB.BRZ ordered. EDMS EDMS 09:00 09:00 HEPATIC FUNCTION+C.LAB.BRZ ordered. EDMS EDMS 09:00 09:00 MAGNESIUM+C.LAB.BRZ ordered. EDMS EDMS 09:00 09:00 PROBNP+C.LAB.BRZ ordered. EDMS EDMS 09:00 09:00 PROTIME (+INR)+COAG.LAB.BRZ ordered. EDMS EDMS 09:00 09:00 Troponin High Sensitivity+C.LAB.BRZ ordered. EDMS EDMS 09:00 09:00 Chest Single View+RAD.RAD.BRZ ordered. EDMS EDMS 11:50 11:14 sp3 ss 12:07 11:50 425 ss ss
[2025-01-18] MEDS ORDERED: NITROGLYCERIN 0.4 MG/TAB SL PRN (11:25)
--- NOTE | 2025-01-18 11:33 | P.HP ---
Certification for Inpatient Patient admitted to: Observation With expected LOS: <2 Midnights Practitioner: I am a practitioner with admitting privileges, knowledge of patient current condition, hospital course, and medical plan of care. Services: Services provided to patient in accordance with Admission requirements found in Title 42 Section 412.3 of the Code of Federal Regulations Patient History Date of Service: 01/18/25 Reason for admission: Chest pain History of Present Illness: Patient is a 84-year-old male with a known past medical history of hypertension, hyperlipidemia, pulmonary embolism, BPH and nephrolithiasis. Presented to the ER complaining of chest pain which started last night. His chest pain is radiating to his neck going towards the back. Patient admits to being noncompliant with his home medications. His first troponin is negative. CT angio of the chest ruled out pulmonary embolism. Allergies niacin [From Niaspan Extended-Release] Allergy (Severe, Verified 07/28/17 09:45) Rash Home Medications: Fluoxetine HCl 20 mg PO DAILY 03/15/13 Gabapentin [Neurontin*] 600 mg PO BID 03/15/13 [place]-3/Dha/Epa/Fish Oil [[place]-3 Fish Oil 1,000 mg Sfgl] 1,000 mg PO BID 03/15/13 Ubidecarenone [Co Q-10] 400 mg PO DAILY 03/15/13 ramipriL [Altace*] 10 mg PO DAILY AFTER SUPPER 03/15/13 Fenofibrate [Tricor*] 145 mg PO DAILY 05/13/14 Potassium Citrate [Potassium Citrate ER] 20 meq PO TID 08/18/14 Amlodipine Besylate 5 mg PO [id number] 07/28/17 Celecoxib [Celebrex] 200 mg PO BID 07/28/17 Cholecalciferol (Vitamin D3) [Vitamin D 1000 Iu Tab*] 1,000 unit PO DAILY 07/28/17 Latanoprost Ophth [Xalatan 0.005%*] 1 gtt EACH EYE BEDTIME 07/28/17 Magnesium Oxide [Magnesium] 500 mg PO DAILY 07/28/17 Tamsulosin HCl [Flomax] 0.4 mg PO DAILY 07/28/17 - Past Medical/Surgical History Diabetic: No -: Nephrolithiasis -: Neuropathy -: Osteoarthritis -: HTN -: Hyperlipidemia -: BPH, Urology-Dr. Mane -: DDD/DJD of the Back -: CARINA, On CPAP -: Total Right Replacement. -: Hemorrhoid surgery -: Left Great Toe Surgery -: Back Surgery Psychosocial/ Personal History: for 44 years, Children-2, Work-Retired, Electrical business. He was adopted. He does not know his family history. - Social History Alcohol use: No CD- Drugs: No Caffeine use: Yes Physical Examination - Physical Exam General: Acute distress HEENT: Atraumatic, Normocephalic Respiratory: Clear to auscultation bilaterally, Normal air movement Cardiovascular: No edema, Normal pulses, Regular rate/rhythm, Normal S1 S2 Neurological: Normal speech - Studies Laboratory Data (last 24 hrs) 01/18/25 01/18/25 01/18/25 09:10 09:10 09:10 WBC 7.90 Hgb 16.0 Hct 47.2 Plt Count 239 PT 12.9 INR 1.15 Sodium 138 Potassium 3.7 BUN 12 Creatinine 0.90 Glucose 139 H Magnesium 2.3 Total Bilirubin 1.0 AST 27 ALT 42 Alkaline Phosphatase 44 L Assessment and Plan - Plan Assessment This is a 84-year-old male with hypertension hyperlipidemia and a history of 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 He presents with chest pain that started last night. Patient has been noncompliant with his medications. Initial workup including troponin and CT angio was negative. Chest painACS rule out Medication noncompliance Hypertension Hyperlipidemia History of provoked PEcompleted course of Xarelto 12 years ago BPH Nephrolithiasis Plan: Will admit under observation with telemetry Trend troponin Obtain a 2D echo Cardiology consult ACS protocol including aspirin and high intensity statin - Advance Directives Does patient have a Living Will: No Does patient have a Durable POA for Healthcare: No
[2025-01-18 13:19] VITALS: BMI 32.5
[2025-01-18] MEDS: AMLODIPINE 5 MG TAB ONE (17:19)
[2025-01-18] MEDS: LORazepam 2 MG/ML VIAL IV PRN (17:24)
[2025-01-18] MEDS: AMLODIPINE 5 MG TAB PO SCH (17:25)
[2025-01-18] MEDS: TAMSULOSIN 0.4 MG SR CAP PO SCH (17:25)
[2025-01-18] MEDS: HYDROMORPHONE HCL 1 MG/ML INJ IV ONE (18:35)
[2025-01-18] MEDS: DOCOSAHEXANOIC AC/EPA 1000 MG PO SCH (20:18)
[2025-01-18] MEDS: ATORVASTATIN 40 MG TAB PO SCH (20:19)
[2025-01-18] MEDS: GABAPENTIN 300 MG CAP PO SCH (20:19)
[2025-01-18] MEDS: LATANOPROST 0.005% 2.5ML OPTH OPTH SCH (20:46)
[2025-01-19 05:34] VITALS: O2SAT 91
[2025-01-19 07:27] LABS: Absolute Lymphocytes (CBC) 1.7 K/uL (0.7-4.9); Hematocrit 42.1 % (39.6-49.0); Hemoglobin 14.5 g/dL (13.6-17.9); MCH 32.0 pg (27.0-35.0); MCHC 34.5 g/dL (32.0-36.0); MCV 92.6 fL (80-100); MPV 8.1 fL (7.6-11.3); Nucleated RBC Absolute Count 0.0 (0-0); Nucleated Red Blood Cells % 0.0 % (0-0); RBC Red Blood Cell Count 4.54 M/uL (4.33-5.43); White Blood Count 8.70 thou/uL (4.3-10.9)
[2025-01-19 07:30] LABS: Anion Gap 9.5 mEq/L (5.0-15.0); BUN Blood Urea Nitrogen 16.0 mg/dL (7-18); Glucose Level 119.0 mg/dL (74-106); HDL Cholesterol 30.0 mg/dL (40-60); LDL Cholesterol, Calculated 96.0 mg/dL (<130); LDL Cholesterol,Calc NonReport 96.0; Potassium 4.5 mEq/L (3.5-5.1)
--- NOTE | 2025-01-19 08:28 | P.DS ---
Admission Date: 01/18/25 Discharge Date: 01/19/25 Disposition: ROUTINE DISCHARGE Discharge Condition: GOOD Reason for Admission: Chest pain Brief History of Present Illness: Patient is a 84-year-old male with a known past medical history of hypertension, hyperlipidemia, pulmonary embolism, BPH and nephrolithiasis. Presented to the ER complaining of chest pain which started last night. His chest pain is radiating to his neck going towards the back. Patient admits to being noncompliant with his home medications. His first troponin is negative. CT angio of the chest ruled out pulmonary embolism. Hospital Course: ACS was ruled out with negative cardiac enzymes. Patient will be discharged to follow-up with outpatient cardiology. Daughter has a quarter doper in [place] and would like to arrange for follow-up with them. Patient's hospital course has been unremarkable. He is going to be discharged on aspirin and atorvastatin. Vital Signs/Physical Exam: Temp Pulse Resp BP Pulse Ox 97.9 F 81 16 131/63 91 01/19/25 04:00 01/19/25 05:42 01/19/25 04:00 01/19/25 05:42 01/19/25 04:00 General: In no apparent distress, Cooperative, Obese HEENT: Atraumatic, Normocephalic Respiratory: Clear to auscultation bilaterally, Normal air movement Cardiovascular: No edema, Normal pulses, Regular rate/rhythm, Normal S1 S2 Neurological: Normal speech, Dementia Laboratory Data at Discharge: WBC 8.70 thou/uL (4.3-10.9) 01/19/25 06:35 Hgb 14.5 g/dL (13.6-17.9) D 01/19/25 06:35 Hct 42.1 % (39.6-49.0) 01/19/25 06:35 Plt Count 218 thou/uL (152-406) 01/19/25 06:35 PT 12.9 SECONDS (10-13.0) 01/18/25 09:10 INR 1.15 01/18/25 09:10 Sodium 138 mEq/L (136-145) 01/19/25 06:35 Potassium 4.5 mEq/L (3.5-5.1) D 01/19/25 06:35 BUN 16 mg/dL (7-18) 01/19/25 06:35 Creatinine 1.48 mg/dL (0.70-1.30) H 01/19/25 06:35 Glucose 119 mg/dL (74-106) H 01/19/25 06:35 Magnesium 2.3 mg/dL (1.6-2.4) 01/18/25 09:10 Total Bilirubin 1.0 mg/dL (0.2-1.0) 01/18/25 09:10 AST 27 U/L (15-37) 01/18/25 09:10 ALT 42 U/L (16-61) 01/18/25 09:10 Alkaline Phosphatase 44 U/L (45-117) L 01/18/25 09:10 Triglycerides 149 mg/dL (<150) 01/19/25 06:35 Cholesterol 156 mg/dL (<200) 01/19/25 06:35 HDL Cholesterol 30 mg/dL (40-60) L 01/19/25 06:35 Cholesterol/HDL Ratio 5.20 01/19/25 06:35 Home Medications: Fluoxetine HCl 20 mg PO DAILY 03/15/13 Gabapentin [Neurontin*] 600 mg PO BID 03/15/13 [place]-3/Dha/Epa/Fish Oil [[place]-3 Fish Oil 1,000 mg Sfgl] 1,000 mg PO BID 03/15/13 Ubidecarenone [Co Q-10] 400 mg PO DAILY 03/15/13 ramipriL [Altace*] 10 mg PO DAILY AFTER SUPPER 03/15/13 Fenofibrate [Tricor*] 145 mg PO DAILY 05/13/14 Potassium Citrate [Potassium Citrate ER] 20 meq PO TID 08/18/14 Amlodipine Besylate 5 mg PO [id number] 07/28/17 Celecoxib [Celebrex] 200 mg PO BID 07/28/17 Cholecalciferol (Vitamin D3) [Vitamin D 1000 Iu Tab*] 1,000 unit PO DAILY 07/28/17 Latanoprost Ophth [Xalatan 0.005%*] 1 gtt EACH EYE BEDTIME 07/28/17 Magnesium Oxide [Magnesium] 500 mg PO DAILY 07/28/17 Tamsulosin HCl [Flomax] 0.4 mg PO DAILY 07/28/17 Aspirin [Aspirin EC 81 MG] 81 mg PO DAILY #30 tab 01/19/25 Atorvastatin Calcium [Lipitor] 40 mg PO BEDTIME #30 tab 01/19/25 New Medications: Aspirin [Aspirin EC 81 MG] 81 mg PO DAILY #30 tab Atorvastatin Calcium [Lipitor] 40 mg PO BEDTIME #30 tab Followup: David Hilliard DO [Primary Care Provider] -
[2025-01-19 08:46] VITALS: BP 91/50; TEMP 98
[2025-01-19] MEDS ORDERED: VITAMIN D 1000 UNIT TAB PO SCH (09:00)
[2025-01-19] MEDS ORDERED: FLUOXETINE 20 MG CAP PO SCH (09:00)
[2025-01-19] MEDS ORDERED: FENOFIBRATE 160 MG TAB PO SCH (09:00)
[2025-01-19] MEDS ORDERED: ASPIRIN EC 81 MG TAB PO SCH (09:00)
[2025-01-19] MEDS ORDERED: MAGNESIUM OXIDE 400 MG TAB PO SCH (09:00)
[2025-01-19] MEDS ORDERED: COENZYME Q10- 200 MG CAP PO SCH (09:00)
== END 2025-01-19 08:00 | disposition home or self-care (01) ==
LOC: ER 08:57 → ERHOLD 11:25 → 2ND 12:08
PROVIDERS: ADMIT Internal Medicine; ATTEND Internal Medicine
DX: R07.9 Chest pain, unspecified (principal); I10 Essential (primary) hypertension; E78.5 Hyperlipidemia, unspecified; N40.0 Benign prostatic hyperplasia without lower urinary tract symptoms; N20.0 Calculus of kidney; Z91.199 Patient's noncompliance with other medical treatment and regimen due to unspecified reason
CPT/HCPCS: 85025 ×2; 80048 ×2; 36415; 83735; 85610; 80061; 82947; 80076; 84484 ×3; 83880; 71275; 71045; 94660; Q9967; J1171; J2405; 93005; G0378